=== PATIENT | male | born 1975 | race Caucasian/White ===

== ENCOUNTER 2019-10-15 10:12 | Emergency (ER) | payer OTHER ==
--- NOTE | 2019-10-15 11:03 | EDM.PDOC ---
Scribed by Jaida Rojas 10/15/19 1103 for Chloe Raymundo MD ED HPI GENERAL MEDICAL PROBLEM - General Chief Complaint: General Stated Complaint: UNABLE TO SLEEP Time Seen by Provider: 10/15/19 10:40 Source of Information: Reports: Patient, RN, RN Notes Reviewed History Limitations: Reports: No Limitations - History of Present Illness INITIAL COMMENTS - FREE TEXT/NARRATIVE: Patient presents to ER stating he cannot sleep for the last 2 days. He was taking Ambien. For the last few months it has not been working well so he changed to Trazodone, last night was his first dose. He took 1 at 8:30 P.M. and then another around 10 P.M. but could not sleep. He took 1 at midnight and then an Aleve P.M. at 02:30 and still little to no sleep. Onset: Gradual Duration: Getting Worse Severity: Moderate Improves with: Reports: None Worsens with: Reports: None Associated Symptoms: Reports: No Other Symptoms - Related Data Allergies Allergy/AdvReac Type Severity Reaction Status Date / Time No Known Allergies Allergy Verified 10/15/19 10:20 Home Meds: Home Meds Zolpidem [Ambien] 2.5 mg PO BEDTIME PRN 01/31/14 [History] traZODone HCl [Trazodone HCl] 50 mg PO BEDTIME 10/15/19 [History] Past Medical History - Past Health History Medical/Surgical History: Denies Medical/Surgical History HEENT History: Reports: None Cardiovascular History: Reports: None Respiratory History: Reports: None Genitourinary History: Reports: None Musculoskeletal History: Reports: None Neurological History: Reports: None Psychiatric History: Reports: Other (See Below) Other Psychiatric History: insomnia Endocrine/Metabolic History: Reports: None Hematologic History: Reports: None Immunologic History: Reports: None Oncologic (Cancer) History: Reports: None Dermatologic History: Reports: None - Infectious Disease History Infectious Disease History: Reports: None - Past Surgical History Head Surgeries/Procedures: Reports: None GI Surgical History: Reports: Hernia Repair/Other Social & Family History - Family History Family Medical History: Noncontributory - Tobacco Use Smoking Status *Q: Former Smoker Used Tobacco, but Quit: Yes Month/Year Tobacco Last Used: 01/2019 - Caffeine Use Caffeine Use: Reports: Soda - Alcohol Use Days Per Week of Alcohol Use: 2 Number of Drinks Per Day: 3 Total Drinks Per Week: 6 - Recreational Drug Use Recreational Drug Use: No ED ROS GENERAL - Review of Systems Review Of Systems: Comprehensive ROS is negative, except as noted in HPI. ED EXAM, GENERAL - Physical Exam Exam: See Below Exam Limited By: No Limitations General Appearance: Alert, WD/WN, No Apparent Distress Eye Exam: Bilateral Eye: EOMI, Normal Inspection, PERRL Ears: Normal External Exam, Normal Canal, Hearing Grossly Normal, Normal TMs Nose: Normal Inspection, Normal Mucosa, No Blood Throat/Mouth: Normal Inspection, Normal Lips, Normal Teeth, Normal Gums, Normal Oropharynx, Normal Voice, No Airway Compromise Head: Atraumatic, Normocephalic Neck: Normal Inspection, Supple, Non-Tender, Full Range of Motion Respiratory/Chest: No Respiratory Distress, Lungs Clear, Normal Breath Sounds, No Accessory Muscle Use, Chest Non-Tender Cardiovascular: Normal Peripheral Pulses, Regular Rate, Rhythm, No Edema, No Gallop, No JVD, No Murmur, No Rub Neurological: Alert, Oriented, CN II-XII Intact, Normal Cognition, Normal Gait, Normal Reflexes, No Motor/Sensory Deficits Psychiatric: Normal Affect, Normal Mood Skin Exam: Warm, Dry, Intact, Normal Color, No Rash Course - Vital Signs Last Recorded V/S: Last Vital Signs Temp 96.3 F L 10/15/19 10:21 Pulse 82 10/15/19 10:21 Resp 16 10/15/19 10:21 BP 116/71 10/15/19 10:21 Pulse Ox 99 10/15/19 10:21 Departure - Departure Time of Disposition: 11:03 Disposition: Home, Self-Care 01 Condition: Good Clinical Impression: Insomnia - Discharge Information *PRESCRIPTION DRUG MONITORING PROGRAM REVIEWED*: Not Applicable *COPY OF PRESCRIPTION DRUG MONITORING REPORT IN PATIENT EMELI: Not Applicable Forms: ED Department Discharge Sepsis Event Note (ED) - Evaluation Sepsis Screening Result: No Definite Risk - Focused Exam Vital Signs: Vital Signs Temp Pulse Resp BP Pulse Ox 10/15/19 10:21 96.3 F L 82 16 116/71 99 - Problem List & Annotations (1) Insomnia SNOMED Code(s): 887866209 Code(s): G47.00 - INSOMNIA, UNSPECIFIED Status: Acute - Problem List Review Problem List Initiated/Reviewed/Updated: Yes - Assessment/Plan Assessment:: 44 yo male with insomnia Plan: Reassured pt that withdraw from Ambien does cause insomnia and his symptoms are likely to get worse before they get better. Discussed continued cold turkey vs tapered cessation. Discussed proper use of melatonin as a sleep aid Continue trazodone as directed FU with PCP as previously instructed, or sooner if needed I have read and agree with the documentation that has been completed regarding this visit. By signing this record, I attest that the documentation was completed in my physical presence and is an accurate record of the encounter.
== END 2019-10-15 11:07 | disposition home or self-care (01) ==
LOC: DL.ED 10:12
DX: G47.00 Insomnia, unspecified (principal); Z87.891 Personal history of nicotine dependence
CPT/HCPCS: 99283